=== PATIENT | female | born 1995 | race Caucasian/White ===

== ENCOUNTER → 2020-12-02 13:49 | Outpatient (BNVA) | payer MEDICAID, SELFPAY | PROVIDERS: Family Provider Family Medicine; Visit Provider Nurse Practitioner Family | DX: Z20.822 Contact with and (suspected) exposure to COVID-19 (principal); R05 Cough | CPT/HCPCS: 87635 ==

== ENCOUNTER 2023-02-02 12:00 | Outpatient (CLI) | payer OTHER, SELFPAY ==
--- NOTE | 2023-02-02 12:09 | MR_ITS ---
WS: [id number] MRI ORBIT WITH AND WITHOUT CONTRAST. COMPARISON: None Multiplanar, multisequence imaging is performed with and without contrast. MultiHance 20 mL IV. No diffusion abnormalities. No significant atrophy or prior infarcts. Ventricles are normal size. Orbits and optic nerves are symmetric. There is no tram tracking or abnormal enhancement of the optic nerve sheath. There is no enlargement of the optic nerves. Extraocular muscles are symmetric and nor mal in appearance. Orbits and globes are negative. No enhancement along the optic tracts or the chias m. There is a small mucous retention cyst along the far lateral RIGHT sphenoid sinus. No air-fluid level s within the sinus cavities. Mastoid air cells are clear. Calvarium is normal. IMPRESSION: 1. Negative MRI orbits and globes. No optic tract abnormality or abnormal enhancement. 2. Negative MRI brain with contrast.
[2023-02-02] MEDS: gadobenate dimeglumine 20 mL vial IV (12:55)
== END 2023-02-02 12:01 | disposition home or self-care (01) ==
LOC: RAD 12:01
PROVIDERS: Family Provider Family Medicine; PCP Family Medicine; Visit Provider Physician Assistant Medical
DX: H47.10 Unspecified papilledema (principal)
CPT/HCPCS: 70543; A9577

== ENCOUNTER → 2023-04-26 11:50 | Outpatient (BNVA) | payer OTHER, SELFPAY | PROVIDERS: Family Provider Family Medicine; PCP Family Medicine; Visit Provider Internal Medicine Rheumatology | DX: Z11.1 Encounter for screening for respiratory tuberculosis (principal); R76.8 Other specified abnormal immunological findings in serum; Z79.899 Other long term (current) drug therapy; M19.90 Unspecified osteoarthritis, unspecified site | CPT/HCPCS: 36415; 80076; 82306; 82565; 85025; 85651; 86160; 86162; 86235; 86255; 86376; 86480; 86800 ==

== ENCOUNTER 2023-09-06 08:14 | Outpatient (CLI) | payer OTHER, SELFPAY ==
[2023-09-06 08:45] LABS: Basophils # 0.1 10^3/uL (0.0-0.1); Basophils % 0.7 %; Eosinophils # 0.5 10^3/uL (0.0-0.8); Eosinophils % 4.7 %; Hematocrit 35.7 % (36-47); Lymphocytes # 2.7 10^3/uL (0.8-4.8); Lymphocytes % 23.3 %; Mean Corpuscular HGB Conc 32.8 g/dL (30-55); Mean Corpuscular Hemoglobin 26.8 pg (27-33); Mean Corpuscular Volume 81.9 fl (85-98); Monocytes # 0.7 10^3/uL (0.2-0.9); Monocytes % 6.4 %; Neutrophils # 7.35 10^3/uL (1.8-7.7); Neutrophils % 64.6 %; Nucleated Red Blood Cells % 0 %; Platelet Count 420 10^3/cmm (157-399); Red Blood Count 4.36 10^6/uL (3.85-5.65); Red Cell Distribution Width 13.2 % (12.1-15.1); White Blood Count 11.37 10^3/uL (3.29-11.43)
[2023-09-06 09:10] LABS: Alanine Aminotransferase 14 U/L (0-33); Albumin Level 3.7 g/dL (3.5-5.2); Alkaline Phosphatase 135 U/L (35-105); Aspartate Amino Transferase 13 U/L (0-32); C Reactive Protein 59.3 mg/L (0.0-4.9); Cortisol Random 31.24 ug/dL (2.47-19.5); Globulin 3.2 g/dL (1.3-4.6); Total Bilirubin 0.2 mg/dL (0.15-1.2); Total Protein 6.9 g/dL (6.6-8.7)
== END 2023-09-06 08:15 | disposition home or self-care (01) ==
LOC: LAB 08:16
PROVIDERS: PCP Family Medicine; Visit Provider Internal Medicine Rheumatology
DX: M19.90 Unspecified osteoarthritis, unspecified site (principal); Z79.899 Other long term (current) drug therapy; E24.9 Cushing's syndrome, unspecified
CPT/HCPCS: 36415; 80076; 82533; 82565; 85025; 86140

== ENCOUNTER → 2023-09-27 11:39 | Outpatient (BNVA) | payer OTHER, SELFPAY | PROVIDERS: PCP Family Medicine; Visit Provider Internal Medicine | DX: E55.9 Vitamin D deficiency, unspecified (principal); R79.89 Other specified abnormal findings of blood chemistry; R63.5 Abnormal weight gain | CPT/HCPCS: 36415; 82306; 84439; 84443 ==

== ENCOUNTER 2023-10-17 08:22 | Outpatient (CLI) | payer OTHER, SELFPAY ==
[2023-10-17 09:01] LABS: Total Volume Urine 1700 ml
[2023-10-17 09:08] LABS: Urine Creatinine 87 mg/dL (28-217)
[2023-10-21 12:24] LABS: Free Cortisol Urine 7.5 mcg/24 h (4.0-50.0); Total Urine 1700 mL
== END 2023-10-17 08:23 | disposition home or self-care (01) ==
LOC: LAB 08:23
PROVIDERS: PCP Family Medicine; Visit Provider Internal Medicine
DX: E55.9 Vitamin D deficiency, unspecified (principal); R79.89 Other specified abnormal findings of blood chemistry; R63.5 Abnormal weight gain
CPT/HCPCS: 82530; 82570

== ENCOUNTER 2024-05-31 12:33 | Outpatient (CLI) | payer OTHER, SELFPAY ==
[2024-05-31 13:05] LABS: Basophils # 0.1 10^3/uL (0.0-0.1); Eosinophils # 0.4 10^3/uL (0.0-0.8); Eosinophils % 3.4 %; Hematocrit 39.1 % (36-47); Lymphocytes # 4.3 10^3/uL (0.8-4.8); Lymphocytes % 38.4 %; Mean Corpuscular HGB Conc 32.5 g/dL (30-55); Mean Corpuscular Hemoglobin 27.8 pg (27-33); Mean Corpuscular Volume 85.6 fl (85-98); Mean Platelet Volume 10.3 fL (7.4-10.4); Monocytes # 0.5 10^3/uL (0.2-0.9); Monocytes % 4.5 %; Neutrophils # 5.87 10^3/uL (1.8-7.7); Neutrophils % 52.3 %; Nucleated Red Blood Cells % 0 %; Platelet Count 347 10^3/cmm (157-399); Red Blood Count 4.57 10^6/uL (3.85-5.65); Red Cell Distribution Width 13.1 % (12.1-15.1); White Blood Count 11.21 10^3/uL (3.29-11.43)
[2024-05-31 13:09] LABS: Erythrocyte Sedimentation Rate 17 mm/hr (0-15)
[2024-05-31 13:24] LABS: Alanine Aminotransferase 30 U/L (0-33); Albumin Level 4.7 g/dL (3.5-5.2); Alkaline Phosphatase 121 U/L (35-105); Aspartate Amino Transferase 20 U/L (0-32); C Reactive Protein 16.5 mg/L (0.0-4.9); Globulin 2.8 g/dL (1.3-4.6); Glomerular Filtration Rate 118.2 mL/min (90-130); Total Bilirubin 0.2 mg/dL (0.15-1.2); Total Protein 7.5 g/dL (6.6-8.7)
[2024-06-01 15:39] LABS: Cyclic Citrullinated Peptide <16 UNITS
== END 2024-05-31 12:34 | disposition home or self-care (01) ==
LOC: LAB 12:34
PROVIDERS: PCP Family Medicine; Visit Provider Internal Medicine Rheumatology
DX: Z79.899 Other long term (current) drug therapy (principal)
CPT/HCPCS: 36415; 80076; 82565; 85025; 85651; 86140; 86200; 86431

== ENCOUNTER 2024-06-28 08:09 | Outpatient (CLI) | payer OTHER, SELFPAY ==
[2024-06-28 09:34] LABS: Cortisol Random 0.49 ug/dL (2.47-19.5)
== END 2024-06-28 08:10 | disposition home or self-care (01) ==
PROVIDERS: PCP Family Medicine; Visit Provider Internal Medicine
DX: E24.9 Cushing's syndrome, unspecified (principal)
CPT/HCPCS: 82533

== ENCOUNTER 2024-11-06 11:28 | Outpatient (CLI) | payer OTHER, SELFPAY ==
[2024-11-06 12:25] LABS: Hematocrit 37.1 % (36-47); Hemoglobin 12.10 g/dL (11.27-16.99); Mean Corpuscular HGB Conc 32.6 g/dL (30-55); Mean Corpuscular Hemoglobin 27.9 pg (27-33); Mean Corpuscular Volume 85.5 fl (85-98); Nucleated Red Blood Cells % 0 %; Platelet Count 394 10^3/cmm (157-399); Red Blood Count 4.34 10^6/uL (3.85-5.65); White Blood Count 13.39 10^3/uL (3.29-11.43)
[2024-11-06 12:38] LABS: Alanine Aminotransferase 15 U/L (0-33); Albumin Level 4.1 g/dL (3.5-5.2); Alkaline Phosphatase 104 U/L (35-105); Aspartate Amino Transferase 11 U/L (0-32); Globulin 3.4 g/dL (1.3-4.6); Total Protein 7.5 g/dL (6.6-8.7)
== END 2024-11-06 11:29 | disposition home or self-care (01) ==
PROVIDERS: PCP Family Medicine; Visit Provider Internal Medicine Rheumatology
DX: Z79.899 Other long term (current) drug therapy (principal)
CPT/HCPCS: 36415; 80076; 82306; 82565; 85025; 85651; 86140; 86480